=== PATIENT | male | born 1935 | race Caucasian/White ===

== ENCOUNTER 2020-04-17 12:29 | Emergency (ER) | payer MEDICARE, OTHER ==
--- NOTE | 2020-04-17 13:12 | EDM.PDOC ---
ED HPI GENERAL MEDICAL PROBLEM - General Chief Complaint: Respiratory Problem Stated Complaint: SOB, COVID + Time Seen by Provider: 04/17/20 12:36 Source of Information: Reports: Patient, Other ([facility] staff) History Limitations: Reports: Other (hx of some confusion) - History of Present Illness INITIAL COMMENTS - FREE TEXT/NARRATIVE: Patient sent to ER for further evaluation of increased oxygen requirement/confusion/weakness. Has been in the vet's home Covid unit since being diagnosed with Covid on Apr 05. They report that over the last 24 hours they noted an increased oxygen requirement and increased confusion. Fever noted last night but it was not relayed to us what actual temp was noted to be. Has been eating/drinking but not as much as usual. Diarrhea resolved. Has required 2-3L of O2 via NC to keep sats around 90% until yesterday. He was brought in on non-rebreather by EMS after being in low 80s on nasal cannula. He does not know what town he is in but knows he is in a hospital. Cannot recall where he resides when asked. - Related Data Allergies Allergy/AdvReac Type Severity Reaction Status Date / Time pyrimethamine Allergy Cannot Verified 04/17/20 12:33 Remember Sulfa (Sulfonamide Allergy Cannot Verified 04/17/20 12:33 Antibiotics) Remember Home Meds: Home Meds Acetaminophen [Tylenol] 325 mg PO DAILY@169904/17/20 [History] Acetaminophen [Tylenol] 650 mg PO Q4HR PRN 04/17/20 [History] Ascorbic Acid [Vitamin C] 1,000 mg PO DAILY@169904/17/20 [History] Cholecalciferol (Vitamin D3) [Vitamin D3] 2,000 unit PO DAILY@169904/17/20 [History] Clopidogrel Bisulfate [Plavix] 75 mg PO DAILY@169904/17/20 [History] Levothyroxine [Synthroid] 50 mcg PO DAILY@89904/17/20 [History] Losartan [Cozaar] 12.5 mg PO DAILY@04/17/20 [History] Menthol [[place] Sugar Free] 1 lozenge PO Q2HR PRN 04/17/20 [History] Methyl Salicylate/Menthol [Thera-Gesic Analgesic] 1 applic TOP QID PRN 04/17/20 [History] Modafinil [Provigil] 300 mg PO DAILY@04/17/20 [History] Multivitamin with Minerals [Multivitamins with Minerals] 1 each PO DAILY@169904/17/20 [History] Non-Formulary Medication [NF Drug] 1 cap PO DAILY@169904/17/20 [History] Non-Formulary Medication [NF Drug] 3 cap PO DAILY@0804/17/20 [History] Polyvinyl Alcohol [LiquiTears 1.4% Ophth Soln] 1 - 2 drop EYEBOTH ASDIRECTED PRN 04/17/20 [History] Sodium Chloride 1 gm PO 08,04/17/20 [History] Tamsulosin [Tamsulosin 24 Hr] 0.4 mg PO DAILY@169904/17/20 [History] Zinc Sulfate [Zinc-220] 1 cap PO DAILY@169904/17/20 [History] guaiFENesin/Dextromethorphan [Tussin Dm Syrup] 10 ml PO Q4HR PRN 04/17/20 [History] Past Medical History HEENT History: Reports: Cataract, Hard of Hearing Cardiovascular History: Reports: CAD, Hypertension Gastrointestinal History: Reports: Chronic Constipation Genitourinary History: Reports: BPH, Urinary Incontinence Musculoskeletal History: Reports: Other (See Below) (generalized weakness) Neurological History: Reports: Other (See Below) (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 Denies: Chills, Night Sweats, Diaphoresis HEENT: Reports: Other (no acute changes reported) Respiratory: Reports: Shortness of Breath, Other (does not report significant co ugh). Denies: Wheezing, Pleuritic Chest Pain, Hemoptysis Cardiovascular: Reports: Dyspnea on Exertion. Denies: Chest Pain, Edema, Lightheadedness, Palpitations, Syncope GI/Abdominal: Reports: Decreased Appetite. Denies: Abdominal Pain, Black Stool, Bloody Stool, Constipation, Diarrhea, Distension, Nausea, Vomiting : Reports: No Symptoms Musculoskeletal: Reports: Other (no acute changes/new pain) Skin: Denies: Rash, Erythema, Wound, Lesions Neurological: Reports: Confusion, Weakness (global). Denies: Headache, Seizure, Change in Speech Psychiatric: Reports: Confusion ED EXAM, GENERAL - Physical Exam Exam: See Below Exam Limited By: No Limitations General Appearance: Alert, Other (Sitting upright in bed, non-rebreather mask, increased respiratory rate but otherwise no acute distress noted) Eye Exam: Bilateral Eye: EOMI, PERRL Ears: Hearing Grossly Normal Nose: No: Nasal Deformity, Nasal Swelling, Nasal Drainage Throat/Mouth: Normal Lips, Normal Voice, No Airway Compromise Head: Atraumatic, Normocephalic Neck: Supple Respiratory/Chest: Chest Non-Tender, Rales (bilat), Rhonchi, Accessory Muscle Use. No: Stridor, Prolonged Expiration Cardiovascular: Regular Rate, Rhythm Peripheral Pulses: 2+: Radial (L), Radial (R) GI/Abdominal: Normal Bowel Sounds, Soft, Non-Tender, No Distention (Male) Exam: Deferred Rectal (Males) Exam: Deferred Back Exam: No: CVA Tenderness (L), CVA Tenderness (R), Muscle Spasm, Paraspinal Tenderness, Vertebral Tenderness Extremities: Non-Tender, Normal Capillary Refill, Pedal Edema (minimal/bilat) Neurological: Alert Psychiatric: Normal Affect, Normal Mood Skin Exam: Warm, Dry, Normal Color #1 Interpretation EKG Date: 04/17/20 Time: 13:16 Rhythm: Other (1st degree AV block) Rate (Beats/Min): 64 [place]: Normal P-Wave: Present QRS: Normal ST-T: Normal QT: Normal Comparison: NA - No Prior EKG Course - Vital Signs Last Recorded V/S: Last Vital Signs Temp 35.9 C L 04/17/20 14:57 Pulse 64 04/17/20 14:57 Resp 30 H 04/17/20 14:57 BP 141/73 H 04/17/20 14:57 Pulse Ox 94 L 04/17/20 14:57 - Orders/Labs/Meds Orders: Active Orders 24 hr Category Date Time Status EKG Documentation Completion [RC] ASDIRECTED Care 04/17/20 12:48 Active Chest 1V Frontal [CR] Stat Exams 04/17/20 12:48 Taken PE Chest [Ang Chest] [CT] Stat Exams 04/17/20 13:42 Taken UA W/MICROSCOPIC [URIN] Stat Lab 04/17/20 12:47 Ordered Sodium Chloride 0.9% [Normal Saline] 500 ml Med 04/17/20 13:45 Active IV .BOLUS Sodium Chloride 0.9% [Saline Flush] Med 04/17/20 13:25 Active 10 ml FLUSH ASDIRECTED PRN Medication Orders Sodium Chloride (Normal Saline) 500 mls @ 250 mls/hr IV .BOLUS SUKHDEEP Last Admin: 04/17/20 14:11 Dose: 250 mls/hr Documented by: RADHA Sodium Chloride (Saline Flush) 10 ml FLUSH ASDIRECTED PRN PRN Reason: Keep Vein Open Last Admin: 04/17/20 13:25 Dose: 10 ml Documented by: RADHA Labs: Laboratory Tests 04/17/20 04/17/20 04/17/20 Range/Units 13:05 13:05 13:05 WBC 7.9 (4.0-10.2) K/uL RBC 4.41 (4.33-5.41) M/uL Hgb 11.8 L D (13.1-16.8) g/dL Hct 34.8 L (39.0-49.0) % MCV 78.9 L D (84.0-98.0) fL MCH 26.8 L (28.2-33.3) pg MCHC 33.9 (31.7-36.0) g/dL RDW 19.2 H (11.2-14.1) % Plt Count 565 H (150-350) K/uL Neut % (Auto) 84.7 H (45.0-80.0) % Lymph % (Auto) 7.6 L (10.0-50.0) % [place] % (Auto) 7.0 (2.0-14.0) % Eos % (Auto) 0.4 (0.0-5.0) % Baso % (Auto) 0.3 (0.0-2.0) % Neut # (Auto) 6.65 (1.40-7.00) K/uL Lymph # (Auto) 0.60 (0.50-3.50) K/uL [place] # (Auto) 0.55 (0.00-1.00) K/uL Eos # (Auto) 0.03 (0.00-0.50) K/uL Baso # (Auto) 0.02 (0.00-0.20) K/uL PT (9.5-12.0) SEC INR D-Dimer, Quantitative 4100 H (0-400) ng/mL Sodium 143 (136-145) mmol/L Potassium 3.1 L (3.5-5.1) mmol/L Chloride 107 (98-107) mmol/L Carbon Dioxide 22.1 (21.0-32.0) mmol/L BUN 19 H (7-18) mg/dL Creatinine 0.69 (0.51-1.17) mg/dL Est Cr Clr Drug Dosing TNP Estimated GFR (MDRD) > 60 mL/min Glucose 119 H (74-106) mg/dL Lactic Acid (0.4-2.0) mmol/L Calcium 8.3 L (8.5-10.1) mg/dL Magnesium 1.8 (1.8-2.4) mg/dL Total Bilirubin 1.2 H (0.2-1.0) mg/dL AST 46 H (15-37) U/L ALT 45 (12-78) U/L Alkaline Phosphatase 125 H (46-116) IU/L Troponin I 0.032 (0.000-0.056) ng/mL C-Reactive Protein (<=0.9) mg/dL NT-Pro-B Natriuret Pep 2829 H (0-125) pg/mL Total Protein 6.7 (6.4-8.2) g/dL Albumin 2.6 L (3.4-5.0) g/dL 04/17/20 04/17/20 04/17/20 Range/Units 13:05 13:05 13:05 WBC (4.0-10.2) K/uL RBC (4.33-5.41) M/uL Hgb (13.1-16.8) g/dL Hct (39.0-49.0) % MCV (84.0-98.0) fL MCH (28.2-33.3) pg MCHC (31.7-36.0) g/dL RDW (11.2-14.1) % Plt Count (150-350) K/uL Neut % (Auto) (45.0-80.0) % Lymph % (Auto) (10.0-50.0) % [place] % (Auto) (2.0-14.0) % Eos % (Auto) (0.0-5.0) % Baso % (Auto) (0.0-2.0) % Neut # (Auto) (1.40-7.00) K/uL Lymph # (Auto) (0.50-3.50) K/uL [place] # (Auto) (0.00-1.00) K/uL Eos # (Auto) (0.00-0.50) K/uL Baso # (Auto) (0.00-0.20) K/uL PT 11.3 (9.5-12.0) SEC INR 1.1 D-Dimer, Quantitative (0-400) ng/mL Sodium (136-145) mmol/L Potassium (3.5-5.1) mmol/L Chloride (98-107) mmol/L Carbon Dioxide (21.0-32.0) mmol/L BUN (7-18) mg/dL Creatinine (0.51-1.17) mg/dL Est Cr Clr Drug Dosing Estimated GFR (MDRD) mL/min Glucose (74-106) mg/dL Lactic Acid 1.2 (0.4-2.0) mmol/L Calcium (8.5-10.1) mg/dL Magnesium (1.8-2.4) mg/dL Total Bilirubin (0.2-1.0) mg/dL AST (15-37) U/L ALT (12-78) U/L Alkaline Phosphatase (46-116) IU/L Troponin I (0.000-0.056) ng/mL C-Reactive Protein 20.3 H (<=0.9) mg/dL NT-Pro-B Natriuret Pep (0-125) pg/mL Total Protein (6.4-8.2) g/dL Albumin (3.4-5.0) g/dL Meds: Medications Generic Name Dose Route Start Last Admin Trade Name Freq PRN Reason Stop Dose Admin Sodium Chloride 500 mls @ 250 mls/hr 04/17/20 13:45 04/17/20 14:11 Normal Saline IV 250 mls/hr .BOLUS SUKHDEEP Administration Sodium Chloride 10 ml 04/17/20 13:25 04/17/20 13:25 Saline Flush FLUSH 10 ml ASDIRECTED PRN Administration Keep Vein Open Discontinued Medications Generic Name Dose Route Start Last Admin Trade Name Haoq PRN Reason Stop Dose Admin Dexamethasone 6 mg 04/17/20 12:49 04/17/20 13:25 Decadron IVPUSH 04/17/20 12:50 6 mg ONETIME ONE Administration Iopamidol 100 ml 04/17/20 13:00 Isovue-370 (76%) IVPUSH 04/17/20 13:01 ONETIME ONE Potassium Chloride 20 meq 04/17/20 13:43 Klor-Con 10 PO 04/17/20 13:44 ONETIME ONE - Radiology Interpretation Free Text/Narrative:: Chest xray shows patchy changes bilaterally consistent with active Covid pneumonia CT Results Date: 04/17/20 CT Results Time: 15:05 (CT confirms bilateral pneumonia. No evidence of PE) - Re-Assessments/Exams Free Text/Narrative Re-Assessment/Exam: 04/17/20 15:22 Labs/xray initially ordered. WBC normal. CBC overall unremarkable except mild anemia. Chem showed K of 3.1, minimally elevated LFTs. DDimer quite high at 4100 normal lactic acid ProBNP [address] ordered to rule out PE and was negative for PE. Bilateral pneumonia/covid pattern confirmed. Patient stated that he felt comfortable throughout his stay. O2 sats maintained 91-94% on supplemental O2. IV Dexamethasone and potassium replacement/fluids initiated. He is DNR/DNI. Once CT results available, plans for transfer to [facility] arranged with as accepting MD. Departure - Departure Time of Disposition: 15:27 Disposition: DC/Tfer to [facility] Condition: Serious Clinical Impression: COVID-19, Hypoxemia, Hypokalemia - Discharge Information *PRESCRIPTION DRUG MONITORING PROGRAM REVIEWED*: Not Applicable *COPY OF PRESCRIPTION DRUG MONITORING REPORT IN PATIENT KATY: Not Applicable Referrals: Kaylee Marvin PA [Primary Care Provider] - Sepsis Event Note (ED) - Evaluation Sepsis Screening Result: Possible Sepsis Risk - Focused Exam Vital Signs: Vital Signs Temp Pulse Resp BP Pulse Ox 04/17/20 14:57 35.9 C L 64 30 H 141/73 H 94 L 04/17/20 13:26 55 L 30 H 142/56 H 91 L 04/17/20 12:30 36.6 C 64 32 H 139/73 91 L - My Orders Last 24 Hours: My Active Orders 04/17/20 12:47 UA W/MICROSCOPIC [URIN] Stat 04/17/20 12:48 EKG Documentation Completion [RC] ASDIRECTED Chest 1V Frontal [CR] Stat 04/17/20 13:25 Sodium Chloride 0.9% [Saline Flush] 10 ml FLUSH ASDIRECTED PRN 04/17/20 13:42 PE Chest [Ang Chest] [CT] Stat 04/17/20 13:45 Sodium Chloride 0.9% [Normal Saline] 500 ml IV .BOLUS - Assessment/Plan Last 24 Hours: My Active Orders 04/17/20 12:47 UA W/MICROSCOPIC [URIN] Stat 04/17/20 12:48 EKG Documentation Completion [RC] ASDIRECTED Chest 1V Frontal [CR] Stat 04/17/20 13:25 Sodium Chloride 0.9% [Saline Flush] 10 ml FLUSH ASDIRECTED PRN 04/17/20 13:42 PE Chest [Ang Chest] [CT] Stat 04/17/20 13:45 Sodium Chloride 0.9% [Normal Saline] 500 ml IV .BOLUS
[2020-04-17] MEDS: Sodium Chloride 0.9% 10 ML Syringe FLUSH PRN (13:25)
[2020-04-17] MEDS: Dexamethasone 10 MG/ML SDV IVPUSH ONE (13:25)
[2020-04-17 13:34] LABS: CHLORIDE,CL 107 mmol/L (98-107); SODIUM,NA 143 mmol/L (136-145)
[2020-04-17] MEDS ORDERED: Potassium Chloride 10 MEQ Tab.ER PO ONE (13:43)
[2020-04-17] MEDS: Sodium Chloride 0.9% 500 ML IV SCH (14:11)
[2020-04-17] MEDS: Iopamidol 755 Mg/ML 100 ML Bottle IVPUSH ONE (14:20)
== END 2020-04-17 15:55 ==
LOC: LL.ED 12:29
DX: U07.1 COVID-19 (principal); E87.6 Hypokalemia; R09.02 Hypoxemia; I25.10 Atherosclerotic heart disease of native coronary artery without angina pectoris; I10 Essential (primary) hypertension; E03.9 Hypothyroidism, unspecified; N40.0 Benign prostatic hyperplasia without lower urinary tract symptoms; Z88.2 Allergy status to sulfonamides; Z88.8 Allergy status to other drugs, medicaments and biological substances; Z79.899 Other long term (current) drug therapy
CPT/HCPCS: 36415; 71045; 71275; 80053; 83605; 83735; 83880; 84484; 85025; 85379; 85610; 86140; 93005; 96374; 99285-25; J1100; J7040; Q9967